=== PATIENT | male | born 1995 | race Caucasian/White ===

== ENCOUNTER 2018-04-06 09:08 | Emergency (ER) | payer BC ==
[2018-04-06 09:43] VITALS: BP 135/74
--- NOTE | 2018-04-06 10:01 | UC ---
Complaint Male HPI - HPI Summary HPI Summary: Per physical science technician "c/o noticing 2 white lesions on the shaft of his penis that has been there for the past 2 weeks. He states the lesions are not painful and are not open. Denies any d/c from his penis. He does admit to having unprotected sex in Dec. " -denies any pain. no dc from penis or urethra. no dysuria. -first lesion appeared 3 wks ago and has had 2 more, maybe a 3rd pop up since then - History of Current Complaint Chief Complaint: UCGU Stated Complaint: PERSONAL Time Seen by Provider: 04/06/18 09:56 Pain Intensity: 0 - Allergies/Home Medications Allergies/Adverse Reactions: Allergies Allergy/AdvReac Type Severity Reaction Status Date / Time soy Allergy Difficulty Verified 04/06/18 09:13 Breathing Beans Allergy Difficulty Uncoded 04/06/18 09:13 Breathing/Wheezing peas Allergy Anaphylatic Uncoded 04/06/18 09:44 Shock protien Allergy Difficulty Uncoded 04/06/18 09:13 Breathing Home Medications: Home Medications NK [No Home Medications Reported] 04/06/18 [History Confirmed 04/06/18] PMH/Surg Hx/FS Hx/Imm Hx Previously Healthy: Yes - Surgical History Surgical History: Yes Surgery Procedure, Year, and Place: Ear tubes x 2 - Family History Known Family History: Positive: Diabetes, Respiratory Disease - Social History Alcohol Use: Rare Substance Use Type: None Smoking Status (MU): Never Smoked Tobacco Review of Systems All Other Systems Reviewed And Are Negative: Yes Constitutional: Positive: Negative Skin: Positive: Negative Eyes: Positive: Negative ENT: Positive: Negative Respiratory: Positive: Negative Cardiovascular: Positive: Negative Gastrointestinal: Positive: Negative Genitourinary: Positive: Ulceration/Lesion Motor: Positive: Negative Neurovascular: Positive: Negative Musculoskeletal: Positive: Negative Neurological: Positive: Negative Psychological: Positive: Negative Is Patient Immunocompromised?: No Physical Exam Triage Information Reviewed: Yes Appearance: Well-Appearing, No Pain Distress, Well-Nourished - very pleasant Vital Signs: Initial Vital Signs Temp 96.9 F 04/06/18 09:37 Pulse 58 04/06/18 09:37 Resp 14 04/06/18 09:37 BP 135/74 04/06/18 09:37 Pulse Ox 100 04/06/18 09:37 Vital Signs Reviewed: Yes Respiratory Exam: Normal Cardiovascular Exam: Normal Cardiovascular: Positive: RRR Abdominal Exam: Normal Male Genital Exam: Positive: Lesions - dorsal penis shaft just proximal to the head with 3 very small elevated lesions (2-3mm diameter) w/ surrounding excoriation, ? if central umbilication. also a small right shaft similar lesion. not tender. no discarge. Musculoskeletal Exam: Normal Neurological Exam: Normal Psychological: Positive: Normal Response To Family Complaint Male Course/Dx - Course Course Of Treatment: -? molluscum vs skin tags. unlikely to be HSV. -RPR to r/ o syphilis. -recommend FU w/ PCP for cryotherapy as it is NA here. - Differential Dx/Diagnosis Differential Diagnosis/HQI/PQRI: Phimosis, Other - molluscum, skin tags, syphilis Provider Diagnosis: Skin lesion Discharge - Sign-Out/Discharge Documenting (check all that apply): Patient Departure All imaging exams completed and their final reports reviewed: No Studies - Discharge Plan Condition: Stable Disposition: HOME Patient Education Materials: Sexually Transmitted Diseases (ED) Referrals: Grace GOMES,Syed Chavez [Primary Care Provider] - Additional Instructions: We are checking you today for syphilis. Please call in a few days for the results. The diagnosis is not certain at this time but we are giving you information regarding STDs for your information. Please follow up with your PCP. Sometimes these lesions can be frozen off. - Billing Disposition and Condition Condition: STABLE Disposition: Home
== END 2018-04-06 10:43 | disposition home or self-care (01) ==
LOC: UCCORT 09:08
DX: N48.89 Other specified disorders of penis (principal); Z91.018 Allergy to other foods
CPT/HCPCS: 36415; 86592; 99211; G0463